=== PATIENT | female | born 1975 | race Two or more races ===

== ENCOUNTER 2022-10-28 17:23 | Emergency (ER) | payer OTHER ==
[~2022-10-28] VITALS: Ht 167.6 cm; Wt 60.6 kg
[2022-10-28 18:45] VITALS: BP 108/69
== END 2022-10-28 19:54 | disposition home or self-care (01) ==
LOC: ER 17:23
DX: N95.1 Menopausal and female climacteric states (principal); J45.909 Unspecified asthma, uncomplicated